=== PATIENT | female | born 1990 | race Caucasian/White ===

== ENCOUNTER 2017-05-24 13:40 | Observation (INO) ==
[2017-05-24] MEDS ORDERED: 0.9 % Sodium Chloride 1,000 ML IVC SCH (14:00)
[2017-05-24] MEDS ORDERED: Vancomycin 1,000 MG in D5% in Water 250 ML IVPB ONE (14:00)
--- NOTE | 2017-05-24 14:12 | Emergency Department Note ---
Disposition Clinical Impression: Cellulitis, Abscess, Cigarette smoker Disposition: Admitted As Inpatient Condition: Fair Referrals: NONE,PCP [Primary Care Provider] - Forms: ED Satisfaction Letter Time of Disposition: 17:17 ([facility]) Skin/Abscess/FB HPI Chief complaint: ED Skin/Abscess/Foreign Body Stated complaint: abscess rt ankle Time Seen by Provider: 05/24/17 13:49 Source: patient Mode of arrival: ambulatory Limitations: no limitations Nursing Notes Reviewed: Yes Vital Signs Reviewed: Yes HPI Narrative: Patient states she has had a history of MRSA in the past she had an abscess on her left arm she now has one on her right forearm which is really nothing drained [facility] as well as [facility] she is now developing one on her ankle she is currently on Bactrim she denies fever chills lightheadedness dizziness states that the she is not sure what needs to be done states it is very she is having swelling and edema in the legs she denies any redness or streaking up the leg she denies any additional complaints at this time Pt Subjective Complaint: abscess/boil Onset (ago): day(s) (4) Tetanus Up to Date: yes Location: R foot Severity: moderate Severity scale (1-10): 6 Improves with: none Worsens with: palpation, movement Context: IVDA Associated symptoms: Denies: fever, chills, rigors, itching, nausea, vomiting, malaise, arthralgias, myalgias, cough, shortness of breath Treatments prior to arrival: attempted to drain pus at home, antibiotic Previous Rx's Medication Instructions Recorded Triamcinolone Acet 0.1% CRM 453.6 gm TP 2-3XD PRN #1 cream..g. 12/10/16 [Kenalog] cephALEXin [Keflex] 500 mg PO QID 10 Days 12/10/16 Sulfamethoxazole/Trimeth DS 1 each PO BID #14 tablet 04/12/17 [Bactrim DS] Allergies Allergy/AdvReac Type Severity Reaction Status Date / Time No Known Allergies Allergy Verified 12/10/16 16:32 All systems ED: reviewed and negative except as stated. Review of Systems: As Per HPI Constitutional: Denies: fever Eyes: Denies: eye pain ENT ED: Denies: ear pain Cardiovascular: Denies: chest pain Respiratory: Denies: cough Gastrointestinal: Denies: abdominal pain Genitourinary: Denies: dysuria Musculoskeletal: Reports: other (Abscess). Denies: back pain Integumentary: Denies: rash Neurological: Denies: headache Psychiatric: Denies: anxiety Endocrine: Denies: fatigue Hematological/Lymphatic: Denies: easy bleeding Allergic/Immunologic: Denies: facial swelling Past Medical History - Past Medical History Attestation: Yes The following information was validated with the patient. Source: patient, old records reviewed, nursing notes reviewed Medical history: Reports: hepatitis, other Psychiatric history: Reports: anxiety, bipolar, previous psychiatric hospitalization, other - Social History Smoking Status: Current every day smoker Smokeless Tobacco Status: No Alcohol use: Reports: none Drug use: Reports: IV Drug Use, prescription drug abuse Physical Exam - General Limitations: no limitations General appearance: alert, in no apparent distress, anxious - Head Head exam: atraumatic, normocephalic, normal inspection - Eye Eye exam: Present: normal appearance, PERRL, EOMI - ENT ENT exam: normal exam, normal oropharynx, mucous membranes moist, normal external ear exam - Neck Neck exam: Present: normal inspection, full ROM, trachea midline - Chest Chest inspection: Present: normal inspection, symmetric chest wall rise - Respiratory Respiratory exam: Present: normal lung sounds bilaterally - Cardiovascular Cardiovascular exam: Present: regular rate, normal rhythm, normal heart sounds - Abdominal Exam Abdominal exam: Present: soft, Non-Tender, normal bowel sounds. Absent: mass, pulsatile mass - Expanded Upper Extremity Exam Shoulder exam: Present: normal inspection, full ROM Arm exam: Present: normal inspection, full ROM Elbow exam: Present: normal inspection, full ROM Forearm/Wrist exam: Present: normal inspection, full ROM, other (Hawkins noted both on the forearms but in addition she has a healed scar from multiple abscess drainages one on the left arm and forearm volar aspect one on the volar aspect of the right arm but just proximal to that lesion is a 1.5 cm surgical incision which is actively healing at this time from a prior abscess opened and drained) Hand exam: Present: normal inspection, full ROM Neurosensory exam: Normal: radial nerve, ulnar nerve, median nerve Vascular exam: Normal: capillary refill, radial pulse, ulnar pulse - Expanded Lower Extremity Exam Hip/Pelvis exam: Present: normal inspection, full ROM Upper leg exam: Present: normal inspection, full ROM Knee exam: Present: normal inspection, full ROM Lower leg exam: Present: normal inspection, full ROM Ankle exam: Present: normal inspection, full ROM 1 - 2 cm area of erythema red raised fluctuant small little pustules noted edema appreciated handbreadths abundant above the ankle and including the feet Foot/toe exam: Present: normal inspection, full ROM 1 - Black spider tattooed 2 - Abscess Neurovascular/Tendon exam: Present: normal capillary refill, normal fine/light touch. Absent: motor deficit, sensory deficit, tendon deficit Gait: observed and normal - Back Exam Back exam: Present: normal inspection, full ROM. Absent: muscle spasm - Neurological Exam Neurological exam: Present: alert, oriented X3, CN II-XII intact - Psychiatric Psychiatric exam: Present: normal affect, normal mood - Skin Skin exam: Present: warm, dry, intact, normal color Course Course Narrative: Patient was seen and examined CT scan was performed to make sure there is no involvement of the tendon ligaments and eyes abscess appeared to still be superficial with confirmation via CAT scan of his I&D spoke with Dr. Quan he has agreed for admission she had been started on Vanco given her first dose here in the ER transferred to [facility] for further care and management Vital Signs Temperature 99.4 F 05/24/17 13:41 Pulse Rate 101 05/24/17 13:41 Respiratory Rate 16 05/24/17 13:41 Blood Pressure 121/77 05/24/17 13:41 O2 Sat by Pulse Oximetry 100 05/24/17 13:41 Temperature 99.4 F 05/24/17 13:41 Pulse Rate 90 05/24/17 15:34 Respiratory Rate 16 05/24/17 15:34 Blood Pressure 119/88 05/24/17 15:34 O2 Sat by Pulse Oximetry 100 05/24/17 15:34 Oxygen Delivery Oxygen Delivery Room Air Procedures - Abscess I/D Consent obtained: verbal consent Site: foot Side (if applicable): right Local Anesthetic: lidocaine 1% Amount of Anesthesia Used (mL): 7 Technique: incised with #11 blade Amount of fluid: 1.5 Irrigation: Yes Packing used?: iodoform Skin/Abscess/Foreign Body - Differential Diagnosis Likely: abscess of skin or subcutaneous tissue, cellulitis - Medical Records Medical records reviewed: Yes I reviewed the patient's medical records. - Lab Data Lab results reviewed: Yes I reviewed the patient's lab results. Result diagrams: 05/24/17 14:10 05/24/17 14:10 Lab Results 05/24/17 05/24/17 Range/Units 14:10 14:10 WBC 11.4 H (4.3-11.1) K/mcL RBC 4.32 (3.82-4.97) M/mcL Hgb 13.6 (11.5-15.4) g/dL Hct 40.8 (35.3-44.9) % MCV 94.4 (83.0-100.0) fL MCH 31.5 (28.0-33.3) pg MCHC 33.3 (31.6-35.5) g/dL RDW 13.3 (11.5-14.5) % Plt Count 304 (140-400) K/mcL MPV 9.1 L (9.4-12.4) fL Immature Gran % 0.3 (0-4) % Seg Neutrophils % 65.6 % Lymphocytes % 24.8 % Monocytes % 6.2 % Eosinophils % 2.5 % Basophils % 0.6 % Neutrophils # 7.5 (1.6-8.9) K/mcL Lymphocytes # 2.8 (0.6-4.6) K/mcL Monocytes # 0.7 (0.0-1.3) K/mcL Eosinophils # 0.3 (0.0-0.6) K/mcL Basophils # 0.1 (0.0-0.2) K/mcL Sodium 143 (136-145) mEq/L Potassium 3.8 (3.5-4.5) mEq/L Chloride 112 H (98-109) mEq/L Carbon Dioxide 21 (19-29) mEq/L BUN 14 (7-20) mg/dL Creatinine 0.81 (0.57-1.11) mg/dL Est GFR ( Amer) > 60 (> 60) Est GFR (Non-Af Amer) > 60 (> 60) BUN/Creatinine Ratio 17 (6-26) Glucose 89 (70-99) mg/dL Calculated Osmolality 296 (280-300) Calcium 9.2 (8.6-10.8) mg/dL - Radiology Data Radiology results reviewed: Yes I reviewed the patient's radiology results. ITS Impressions Lower Extremity CT 05/24/17 13:59 IMPRESSION: 1. Nonspecific anterior knee subcutaneous edema which could represent cellulitis. 2. Distal lower leg, ankle, and foot cellulitis with an anterior midline 1.9 cm subcutaneous abscess at the level of the ankle joint. 3. No evidence of deep fascitis, myositis, or necrotizing infection. 4. No evidence of osteomyelitis. There is no CT evidence of ankle septic arthropathy. D/ / 05/24/2017 16:10:58 Grey Jensen MD / [facility] Interpreting Provider: Grey Jensen MD Critical Care Time Critical Care Time: No
[2017-05-24 14:18] LABS: Basophils # 0.1 K/mcL (0.0-0.2); Basophils % 0.6 %; Eosinophils # 0.3 K/mcL (0.0-0.6); Eosinophils % 2.5 %; Hematocrit 40.8 % (35.3-44.9); Hemoglobin 13.6 g/dL (11.5-15.4); Immature Granulocytes % 0.3 % (0-4); Lymphocytes # 2.8 K/mcL (0.6-4.6); Lymphocytes % 24.8 %; Mean Corpuscular HGB Conc 33.3 g/dL (31.6-35.5); Mean Corpuscular Hemoglobin 31.5 pg (28.0-33.3); Mean Corpuscular Volume 94.4 fL (83.0-100.0); Mean Platelet Volume 9.1 fL (9.4-12.4); Monocytes # 0.7 K/mcL (0.0-1.3); Monocytes % 6.2 %; Neutrophils # 7.5 K/mcL (1.6-8.9); Platelet Count 304 K/mcL (140-400); Red Blood Count 4.32 M/mcL (3.82-4.97); Red Cell Distribution Width 13.3 % (11.5-14.5); Segmented Neutrophils % 65.6 %
[2017-05-24 14:33] LABS: BUN/Creatinine Ratio 17 (6-26); Blood Urea Nitrogen 14 mg/dL (7-20); Calcium 9.2 mg/dL (8.6-10.8); Carbon Dioxide 21 mEq/L (19-29); Chloride 112 mEq/L (98-109); Glucose 89 mg/dL (70-99); Osmolality,Calculated 296 (280-300); Potassium 3.8 mEq/L (3.5-4.5); Sodium 143 mEq/L (136-145); eGFR For African Americans > 60 (> 60); eGFR For Non-African Americans > 60 (> 60)
[2017-05-24] MEDS ORDERED: Naloxone 0.4 MG/ML INJ IVP PRN (17:24)
[2017-05-24] MEDS ORDERED: Ondansetron ODT 4 MG TAB.RAPDIS SL PRN (17:24)
[2017-05-24] MEDS ORDERED: *HR* HYDROcodone/Acet 5/325 mg TABLET PO PRN (17:24)
[2017-05-24] MEDS: Nicotine 21 MG PATCH.TD24 TD SCH (17:48)
[2017-05-24] MEDS ORDERED: Vancomycin (wt based) 1,000 MG VIAL IVPB SCH (18:00)
[2017-05-24] MEDS: Clindamycin 600 MG/50 ML 600 MG/50 ML IV.SOLN IVPB SCH (18:07)
[2017-05-24] MEDS: Triamcinolone Acet 0.1% CRM 15 GM TUBE TP SCH (18:09)
[2017-05-24] MEDS: 0.9 % Sodium Chloride 1,000 ML IVC SCH ×2 (18:10→21:46)
[2017-05-25] MEDS: Triamcinolone Acet 0.1% CRM 15 GM TUBE TP SCH ×4 (02:01→20:26)
[2017-05-25] MEDS: Clindamycin 600 MG/50 ML 600 MG/50 ML IV.SOLN IVPB SCH ×3 (02:04→18:20)
[2017-05-25] MEDS: Vancomycin 1,000 MG in D5% in Water 250 ML IVPB SCH ×2 (03:35→16:16)
[2017-05-25 04:52] LABS: Basophils # 0.1 K/mcL (0.0-0.2); Basophils % 0.9 %; Eosinophils # 0.3 K/mcL (0.0-0.6); Hematocrit 35.6 % (35.3-44.9); Immature Granulocytes % 0.3 % (0-4); Lymphocytes # 3.3 K/mcL (0.6-4.6); Lymphocytes % 43.8 %; Mean Corpuscular HGB Conc 33.7 g/dL (31.6-35.5); Mean Corpuscular Hemoglobin 31.7 pg (28.0-33.3); Mean Corpuscular Volume 93.9 fL (83.0-100.0); Mean Platelet Volume 9.3 fL (9.4-12.4); Monocytes # 0.6 K/mcL (0.0-1.3); Monocytes % 7.8 %; Neutrophils # 3.2 K/mcL (1.6-8.9); Platelet Count 259 K/mcL (140-400); Red Blood Count 3.79 M/mcL (3.82-4.97); Segmented Neutrophils % 43.2 %
[2017-05-25 05:18] LABS: BUN/Creatinine Ratio 17 (6-26); Blood Urea Nitrogen 13 mg/dL (7-20); Calcium 8.1 mg/dL (8.6-10.8); Carbon Dioxide 20 mEq/L (19-29); Chloride 110 mEq/L (98-109); Glucose 106 mg/dL (70-99); Osmolality,Calculated 285 (280-300); Potassium 3.7 mEq/L (3.5-4.5); Sodium 137 mEq/L (136-145); eGFR For African Americans > 60 (> 60); eGFR For Non-African Americans > 60 (> 60)
[2017-05-25] MEDS: Nicotine 21 MG PATCH.TD24 TD SCH (08:29)
[2017-05-25] MEDS: 0.9 % Sodium Chloride 1,000 ML IVC SCH (08:31)
--- NOTE | 2017-05-25 10:44 | Internal Med History&Physical ---
Date of Encounter: 05/25/17 Time of Encounter: 10:05 Internal Medicine - H&P: HPI History of present illness: Ms. Craig is a 26 year old female Past Med Surg Social Fam HX - Past Medical History Medical history: asthma, hepatitis, thyroid disease Psychiatric history: anxiety, bipolar, previous psychiatric hospitalization, other - Social History Smoking Status: Current every day smoker Smokeless Tobacco Status: No Alcohol use: none Drug use: IV Drug Use, prescription drug abuse - Family History Mother Living Status: Still Living Hx Family Cardiac Disorders: Yes (CAD, [place]) Hx Family Respiratory Disorders: No Hx Family Cancer: No Hx Family GI Disorders: No Hx Family Endocrine Disorder: No Hx Family Neuromuscular Disorders: No Hx Family Neurologic Disorders: No Hx Family HEENT Disorders: No Hx Family Autoimmune Disorders: No Father Living Status: Still Living Hx Family Cardiac Disorders: Yes (CAD, [place], CVA) Hx Family Respiratory Disorders: No Hx Family Cancer: No Hx Family GI Disorders: No Hx Family Endocrine Disorder: No Hx Family Neuromuscular Disorders: No Hx Family Neurologic Disorders: No Hx Family HEENT Disorders: No Hx Family Autoimmune Disorders: No Internal Medicine - H&P: Meds Triamcinolone Acet 0.1% CRM [Kenalog] 453.6 gm TP 2-3XD PRN #1 cream..g. [Rx] cephALEXin [Keflex] 500 mg PO QID 10 Days 12/10/16 [Rx] Sulfamethoxazole/Trimeth DS [Bactrim DS] 1 each PO BID #14 tablet 04/12/17 [Rx] 3 Allergy/AdvReac Type Severity Reaction Status Date / Time No Known Allergies Allergy Verified 12/10/16 16:32 All Systems PM: A 10-system review of systems was performed and is negative for pertinent findings except as documented above in the HPI. - Constitutional Vitals: Temp Pulse Resp BP Pulse Ox 97.7 F 79 16 98/66 98 05/25/17 06:58 05/25/17 06:58 05/25/17 06:58 05/25/17 06:58 05/25/17 06:58 Internal Med - H&P Results - Labs CBC & Chem 7: 05/25/17 04:15 05/25/17 04:15 Labs: Short CBC 05/25/17 Range/Units 04:15 WBC 7.5 (4.3-11.1) K/mcL Hgb 12.0 D (11.5-15.4) g/dL Hct 35.6 (35.3-44.9) % Plt Count 259 (140-400) K/mcL Neutrophils # 3.2 (1.6-8.9) K/mcL [facility] 05/25/17 04:15 Sodium 137 Potassium 3.7 Chloride 110 H Carbon Dioxide 20 BUN 13 Creatinine 0.75 Glucose 106 H Calcium 8.1 L
--- NOTE | 2017-05-25 10:48 | Internal Med History&Physical ---
Date of Encounter: 05/25/17 Time of Encounter: 10:05 Assessment and Plan (1) Abscess Current visit: Yes Status: Acute She has been started on IV vancomycin and clindamycin. The packing will be removed tomorrow and wound will be reevaluated. Anticipate discharge home tomorrow on oral antibiotics if stable. Internal Medicine - H&P: HPI Chief complaint: Right foot infection Admitted From: Home Plans for Post Hospital Care: Home History of present illness: Ms. Craig is a 26 year old female who came to emergency room stating she had infection in her right foot/ankle for approximately 2 weeks. She had been given Bactrim at a [facility] ER visit May 21 for a right forearm infection. She states the ER staff had seen the foot infection but had not done additional intervention other than start antibiotics. She had CT scan in emergency room which showed a 1.9 x 1.8 x 0.6 cm abscess near the tibiotalar joint. She had incision and drainage done and was started on IV antibiotics and admitted to [facility] floor for ongoing care needs. She states she is an IV drug user with last use approximately 10 days ago. She denies injection in the right ankle area however. She has had several abscesses in the past. She was diagnosed with hepatitis C genotype 1 in 2012 but has not received treatment. Past Med Surg Social Fam HX - Past Medical History Medical history: asthma, hepatitis, thyroid disease Psychiatric history: anxiety, bipolar, previous psychiatric hospitalization, other - Social History Smoking Status: Current every day smoker Smokeless Tobacco Status: No Alcohol use: none Drug use: IV Drug Use, prescription drug abuse - Family History Mother Living Status: Still Living Hx Family Cardiac Disorders: Yes (CAD, [place]) Hx Family Respiratory Disorders: No Hx Family Cancer: No Hx Family GI Disorders: No Hx Family Endocrine Disorder: No Hx Family Neuromuscular Disorders: No Hx Family Neurologic Disorders: No Hx Family HEENT Disorders: No Hx Family Autoimmune Disorders: No Father Living Status: Still Living Hx Family Cardiac Disorders: Yes (CAD, [place], CVA) Hx Family Respiratory Disorders: No Hx Family Cancer: No Hx Family GI Disorders: No Hx Family Endocrine Disorder: No Hx Family Neuromuscular Disorders: No Hx Family Neurologic Disorders: No Hx Family HEENT Disorders: No Hx Family Autoimmune Disorders: No Internal Medicine - H&P: Meds Triamcinolone Acet 0.1% CRM [Kenalog] 453.6 gm TP 2-3XD PRN #1 cream..g. [Rx] cephALEXin [Keflex] 500 mg PO QID 10 Days 12/10/16 [Rx] Sulfamethoxazole/Trimeth DS [Bactrim DS] 1 each PO BID #14 tablet 04/12/17 [Rx] 3 Allergy/AdvReac Type Severity Reaction Status Date / Time No Known Allergies Allergy Verified 12/10/16 16:32 All Systems PM: A 10-system review of systems was performed and is negative for pertinent findings except as documented above in the HPI. Review of systems: Gen.: She states her weight has been stable the past few months Cardiovascular: She has history of hypertension but does not take medication and does not follow with a PCP. She denies [place] heart failure angina DVT or pulmonary embolus. Respiratory: She has smoked since age 16. She has a diagnosis of asthma. She denies other chronic lung disease GI: She denies disorders of her gallbladder or exocrine pancreas. She has hepatitis C as per history of present illness : She denies hematuria dysuria or kidney stones Neurologic: She has history of migraine headaches. She denies strokes or seizures Endocrine: She states she has been diagnosed with hypothyroidism and does not take medication. She denies diabetes or hyperlipidemia Hematology/oncology: she denies blood disorders cancers or anemia Psychiatric: She has anxiety and depression and has had panic attacks in the past. [place] skeletal: She has had abscesses as per history of present illness. She denies other bone joint or muscle disorders. - Constitutional Vitals: Temp Pulse Resp BP Pulse Ox 97.7 F 79 16 98/66 98 05/25/17 06:58 05/25/17 06:58 05/25/17 06:58 05/25/17 06:58 05/25/17 06:58 Exam: Gen.: She is well-developed well-nourished female lying in bed who appears in no acute distress HEENT: Head is atraumatic and normocephalic. Eyes: EOMI. There is no scleral icterus. Mouth: Mucosa is moist Neck: Supple and nontender. There is no thyromegaly or adenopathy noted. Heart: Regular without murmurs gallops or ectopics Lungs: No wheezes or crackles are heard. Abdomen: Soft and nontender. No masses or guarding are noted. Extremities: There is no cyanosis edema or clubbing noted. The right dorsal foot/ankle area shows packing in the abscess that has been drained. There is surrounding erythema with slight induration and tenderness to palpation. She has a scabbed area approximately 12 mm maximum diameter in the right flexor forearm area. Neurologic: Mental status: She is talkative and a good historian. Cranial nerves: Smile is symmetric. Forehead wrinkles bilaterally. Tongue protrudes midline. EOMI. Motor: There is no pronator drift. Cerebellar: Finger to nose is intact bilaterally. Skin: Warm and dry. She has multiple tattoos. Internal Med - H&P Results - Labs CBC & Chem 7: 05/25/17 04:15 05/25/17 04:15 Labs: Short CBC 05/25/17 Range/Units 04:15 WBC 7.5 (4.3-11.1) K/mcL Hgb 12.0 D (11.5-15.4) g/dL Hct 35.6 (35.3-44.9) % Plt Count 259 (140-400) K/mcL Neutrophils # 3.2 (1.6-8.9) K/mcL BMP 05/25/17 04:15 Sodium 137 Potassium 3.7 Chloride 110 H Carbon Dioxide 20 BUN 13 Creatinine 0.75 Glucose 106 H Calcium 8.1 L
[2017-05-25] MEDS: 0.45 % Sodium Chloride w/KCl 20 MEQ/1,000 ML MLS IVC SCH (10:59)
[2017-05-25] MEDS ORDERED: Aminoglycoside Consult 1 EACH MC ONE (16:00)
[2017-05-25] MEDS: Lactobacillus 1 EACH CAP.SPRINK PO SCH (20:26)
[2017-05-26] MEDS: 0.45 % Sodium Chloride w/KCl 20 MEQ/1,000 ML MLS IVC SCH ×2 (00:03→07:27)
[2017-05-26] MEDS: Vancomycin 1,000 MG in D5% in Water 250 ML IVPB SCH ×3 (00:04→09:27)
[2017-05-26] MEDS: Clindamycin 600 MG/50 ML 600 MG/50 ML IV.SOLN IVPB SCH ×2 (03:00→10:22)
[2017-05-26 06:40] VITALS: BP 102/70
[2017-05-26] MEDS: Nicotine 21 MG PATCH.TD24 TD SCH (08:09)
[2017-05-26] MEDS: Lactobacillus 1 EACH CAP.SPRINK PO SCH (08:09)
[2017-05-26] MEDS: Triamcinolone Acet 0.1% CRM 15 GM TUBE TP SCH (09:09)
--- NOTE | 2017-05-26 10:24 | Discharge Summary ---
Date of Encounter: 05/26/17 Time of Encounter: 10:10 - Discharge Diagnosis (1) Abscess Priority: Primary Status: Acute - Discharge Medications Prescriptions: Clindamycin [Cleocin] 300 mg PO Q6HR #56 capsule Lactobacillus [Culturelle] 1 each PO BID #14 Naproxen [Naprosyn] 500 mg PO BID PRN #10 tablet PRN Reason: Pain Sulfamethoxazole/Trimeth DS [Bactrim Ds] 1 each PO BID #14 tablet Home Medications: Triamcinolone Acet 0.1% CRM [Kenalog] 453.6 gm TP 2-3XD PRN #1 cream..g. [Rx] Clindamycin [Cleocin] 300 mg PO Q6HR #56 capsule 05/26/17 [Rx] Lactobacillus [Culturelle] 1 each PO BID #14 05/26/17 [Rx] Naproxen [Naprosyn] 500 mg PO BID PRN #10 tablet 05/26/17 [Rx] Sulfamethoxazole/Trimeth DS [Bactrim Ds] 1 each PO BID #14 tablet 05/26/17 [Rx] Allergies/Adverse Reactions: 3 Allergy/AdvReac Type Severity Reaction Status Date / Time No Known Allergies Allergy Verified 12/10/16 16:32 Date of admission: 05/24/17 17:17 Primary care physician: PCP NONE Consults: 05/24/17 18:01 Consult to Machine Zipper Trimmer [CONS] Routine Reason for SW Consult: pt is at [facility] voluntarily - Patient Status Disposition: Home Health Service Condition: Fair Functional capacity at discharge: independent ambulation Overall status at discharge: patient is progressing back to baseline - Discharge Instructions Follow Up With: NONE,PCP [Primary Care Provider] - 1 week - Diet and Activity Activity: resume usual activities as tolerated Diet: advance to your usual diet Hospital course: Ms. Craig is a 26 year old female who came to emergency room stating she had infection in her right foot/ankle for approximately 2 weeks. She had been given Bactrim at a [facility] ER visit May 21 for a right forearm infection. She states the ER staff had seen the foot infection but had not done additional intervention other than start antibiotics. She had CT scan in emergency room which showed a 1.9 x 1.8 x 0.6 cm abscess near the tibiotalar joint. She had incision and drainage done and was started on IV antibiotics and admitted to [facility] for ongoing care needs. Initial orders were written by the emergency room physician. I saw her May 25 and performed a history and physical. She had incision and drainage of the right foot wound in emergency room. Preliminary culture report showed staph aureus with final sensitivity report pending at time of discharge. She was started on IV vancomycin and clindamycin. She will be continued on oral clindamycin and Septra with lactobacillus at discharge. She will follow with a PCP within one week. She will have daily wound packing by home health nursing. She had a right upper arm infection that did not require packing. She will be on antibiotics as per above. - Time Spent with Patient Total time spent providing and/or coordinating discharge services: - Constitutional Vitals: Temp Pulse Resp BP Pulse Ox 98.5 F 90 16 102/70 97 05/26/17 06:39 05/26/17 06:39 05/26/17 06:39 05/26/17 06:39 05/26/17 06:39
--- NOTE | 2017-05-26 10:54 | Physician Discharge Referral ---
Home Health/Hosp Referral Info Transfer to: Home Health Attending Provider: Kadeem Provider in Charge Post Discharge: PCP - Diagnosis (1) Abscess Priority: Primary Status: Acute - Respiratory Orders Smoking Cessation: Smoking cessation has been advised. For more information, call the [place] Tobacco Quit Line at 4-212-GCRL-NOW. - Dressing/Wound Care Type of Dressing/Treatments w/Frequency: Pack right foot abscess cavity with 1/4 inch packing and cover with 4x4s and gauze wrap until healed. - Diet/Nutrition Diet/Nutrition Orders: Regular - Activity Activity Orders: Up ad denisse - Services Needed Following services are medically necessary services: Nursing - Transfer Medications Prescriptions: Clindamycin [Cleocin] 300 mg PO Q6HR #56 capsule Lactobacillus [Culturelle] 1 each PO BID #14 Naproxen [Naprosyn] 500 mg PO BID PRN #10 tablet PRN Reason: Pain Sulfamethoxazole/Trimeth DS [Bactrim Ds] 1 each PO BID #14 tablet Home Medications: Triamcinolone Acet 0.1% CRM [Kenalog] 453.6 gm TP 2-3XD PRN #1 cream..g. [Rx] Clindamycin [Cleocin] 300 mg PO Q6HR #56 capsule 05/26/17 [Rx] Lactobacillus [Culturelle] 1 each PO BID #14 05/26/17 [Rx] Naproxen [Naprosyn] 500 mg PO BID PRN #10 tablet 05/26/17 [Rx] Sulfamethoxazole/Trimeth DS [Bactrim Ds] 1 each PO BID #14 tablet 05/26/17 [Rx] Allergies/Adverse Reactions: 3 Allergy/AdvReac Type Severity Reaction Status Date / Time No Known Allergies Allergy Verified 12/10/16 16:32 Certification: Further, I certify that my clinical findings support that this patient is homebound (i.e. absences from home require considerable and taxing effort and are for medical reasons or yarsani services or infrequently or short duration when for other reasons) because: Homebound Reason: Post-surgery restriction and or conditions limit ability to leave home (Daily abscess cavity packing of right foot wound) Attestation: My signature below is to certify that this patient is under my care and that I, or nurse practitioner, or a physician's data entry assistant working with me, has a face-to -face encounter with this patient.
== END 2017-05-26 14:25 | disposition home health service (06) ==
LOC: EMEROOPIK 13:40 → INPPIK 13:40
PROVIDERS: ADMIT Internal Medicine; ATTEND Internal Medicine